=== PATIENT | female | born 1960 | race Two or more races ===

== ENCOUNTER 2024-07-10 02:15 | Inpatient (IN) | payer MEDICAID, OTHER ==
[~2024-07-10] VITALS: Ht 170.2 cm; Wt 113.4 kg
[2024-07-10 02:50] VITALS: PULSE 82; RESP 18; O2SAT 94
--- NOTE | 2024-07-10 04:38 | ED.PDOC ---
GI ASSESSMENT HPI Comments 62-year-old female came to emergency room due to generalized weakness. Patient has hypertension, diabetes, CVA. Has been having abdominal pain since yesterday, associated with bouts of nausea, vomiting and diarrhea. She has been feeling very weak and dehydrated. Blood pressure upon arrival was 207/94 mm Hg Chief Complaint: General Weakness Time Seen by MD: 04:38 Primary Care Provider: Unk Reviewed Notes: Nurses Notes Allergies: Coded Allergies: NO KNOWN ALLERGIES (Unverified , 07/10/24) Information Source: Patient Mode of Arrival: EMS Timing: Hours Duration: Intermittent Quality: Aching, Cramping Vomitus: Watery Stool: Watery Severity: Moderate Recent: None Recent Hx of: None Pain Location: Epigastric Modifying Factors: Nothing Associated sign and symptoms: Nausea, Vomiting, Diarrhea, Abdominal Pain, Faintness Past Medical History PAST MEDICAL HISTORY: CVA, Depression, HTN Surgical History: Denies all surgeries [employer] History: Denies all [employer] Hx Family History Family History: Reviewed,noncontributory to illness Social History Smoker: Non-Smoker Alcohol: Denies ETOH Use Drugs: Denies Drug Use Lives In: Home Constitutional: reports: fatigue, weakness; denies: chills, diaphoresis, fever, malaise, sweats, others EENTM: denies: blurred vision, double vision, ear bleeding, ear discharge, ear drainage, ear pain, ear ringing, eye pain, eye redness, hearing loss, mouth pain, mouth swelling, nasal discharge, nose bleeding, nose congestion, nose pain, photophobia, tearing, throat pain, throat swelling, voice changes, others Respiratory: denies: cough, hemoptysis, orthopnea, SOB at rest, shortness of breath, SOB with excertion, stridor, wheezing, others Cardiovascular: denies: chest pain, dizzy spells, diaphoresis, Dyspnea on exertion, edema, irregular heart beat, left arm pain, lightheadedness, palpitations, PND, syncope, others Gastrointestinal: reports: abdominal pain, diarrhea, nausea, vomiting; denies: abdomen distended, blood streaked bowels, constipated, dysphagia, difficulty swallowing, hematemesis, melena, poor appetite, poor fluid intake, rectal bleeding, rectal pain, others Genitourinary: denies: abnormal vagina bleeding, burning, dyspareunia, dysuria, flank pain, frequency, hematuria, incontinence, pain, , vagina discharge, urgency, others Neurological: denies: dizziness, fainting, headache, left sided numbness, left sided weakness, numbness, paresthesia, pre-existing deficit, right sided numbness, right sided weakness, seizure, speech problems, tingling, tremors, we akness, others Musculoskeletal: denies: back pain, gout, joint pain, joint swelling, muscle pain, muscle stiffness, neck pain, others Integumetry: denies: bruises, change in color, change in hair/nails, dryness, laceration, lesions, lumps, rash, wounds, others Allergic/Immunocompromised: denies: Difficulty Healing, Frequent Infections, Hives, Itching, others Hematologic/Lymphatic: denies: anemia, blood clots, easy bleeding, easy bruising, swollen glands, others Endocrine: denies: excessive hunger, excessive sweating, excessive thirst, excessive urination, flushing, intolerance to cold, intolerance to heat, unexplained weight gain, unexplained weight loss, others Psychiatric: denies: anxiety, bipolar disorder, depression, hopeless, panic disorder, schizophrenia, sleepless, suicidal, others Physical Exam General Appearance: No Apparent Distress, Normal HEENT: Normal ENT Inspection, Pharynx Normal, TMs Normal Neck: Full Range of Motion, Non-Tender, Normal, Normal Inspection Respiratory: Chest Non-Tender, Lungs Clear, No Accessory Muscle Use, No Respiratory Distress, Normal Breath Sounds Cardiovascular: No Edema, No JVD, No Murmur, No Gallop, Normal Peripheral Pulses, Regular Rate/Rhythm Breast Exam: Deferred Gastrointestinal: No Organomegaly, Non Tender, No Pulsatile Mass, Normal Bowel Sounds, Soft Genitalia: Deferred Pelvic: Deferred Rectal: Deferred Extremities: No calf tenderness, Normal capillary refill, Normal inspection, Normal range of motion, Non-tender, No pedal edema Musculoskeletal : Apperance: Normal Neurologic: Alert, supervisor cell efficiency II-XII nml as Tested, No Motor Deficits, Normal Affect, Normal Mood, No Sensory Deficits Cerebellar Function: Normal Reflexes: Normal Skin: Dry, Normal Color, Warm Lymphatic: No Adenopathy Was a procedure done? Was a procedure done?: No GI differential Dx Differential Diagnosis: Diverticular disease, Gastritis/PUD, Gastroenteritis, Pancreatitis, UTI, Urolithiasis, Dehydration, Electrolyte Imbalance, Food Po isoning X-Ray, Labs, Meds, VS Vital Signs Date Time Temp Pulse Resp B/P (MAP) Pulse Ox O2 Delivery O2 Flow Rate FiO2 07/10/24 02:18 83 07/10/24 02:18 100.0 88 24 207/94 (131) 95 Lab Test 07/10/24 05:30 07/10/24 05:12 07/10/24 04:45 07/10/24 03:42 Range/Units Influenza Type A Antigen Pending Influenza Type B Antigen Pending SARS-CoV-2 Antigen (Rapid) Pending White Blood Count Pending Red Blood Count Pending Hemoglobin Pending Hematocrit Pending Mean Corpuscular Volume Pending Mean Corpuscular Hemoglobin Pending Mean Corpuscular Hemoglobin Concent Pending Red Cell Distribution Width Pending Platelet Count Pending Mean Platelet Volume Pending Neutrophils (%) (Auto) Pending Lymphocytes (%) (Auto) Pending Monocytes (%) (Auto) Pending Basophils (%) (Auto) Pending Neutrophils # (Auto) Pending Lymphocytes # (Auto) Pending Monocytes # (Auto) Pending Sodium Level Pending Potassium Level Pending Chloride Level Pending Carbon Dioxide Level Pending Anion Gap Pending Blood Urea Nitrogen Pending Creatinine Pending Glomerular Filtration Rate Calc Pending BUN/Creatinine Ratio Pending Serum Glucose Pending Calcium Level Pending Total Bilirubin Pending Aspartate Amino Transferase (AST) Pending Alanine Aminotransferase (ALT) Pending Alkaline Phosphatase Pending Troponin I High Sensitivity Pending Total Protein Pending Albumin Pending Urine Color Light-brown Yellow Urine Clarity Turbid H Clear Urine pH 6.5 5.0-9.0 Urine Specific [place] 1.013 1.001-1.035 Urine Protein 1+ H Negative Urine Ketones Negative Negative Urine Blood 2+ H Negative /uL Urine Nitrite Negative Negative Urine Bilirubin Negative Negative Urine Urobilinogen Normal Negative mg/dL Urine Leukocyte Esterase 3+ Negative /uL Urine RBC 524 0 - 4 /hpf Urine WBC Clumps Present None Seen /hpf Urine Microscopic WBC 149 H 0-5 /HPF Urine Squamous Epithelial Cells Few <5 /hpf Urine Amorphous Crystals Few None Seen /hpf Urine Bacteria Many H None Seen /hpf Urine Glucose 2+ H Normal mg/dL POC Glucose 172 H 70-106 mg/dl Current Medications Medications (Trade) Dose Ordered Sig/Yao Route Start Time Stop Time Status Last Admin Sodium Chloride 1,000 ml @ 150 mls/hr [id number] ONCE IV 07/10/24 04:30 07/10/24 11:09 07/10/24 05:19 Acetaminophen (Ofirmev) 1,000 mg ONCE ONCE IV 07/10/24 04:30 07/10/24 04:31 DC 07/10/24 05:19 Diphenhydramine HCl (Benadryl Injection) 25 mg ONCE ONCE IV 07/10/24 04:30 07/10/24 04:31 DC 07/10/24 05:17 UA reveals urinary tract infection. Labs and swabs are pending. The patient will be signed out to Time of 1ST Reevaluation: 04:20 Reevaluation 1ST: Unchanged Time of 2ND Reevaluation: 05:55 Reevaluation 2ND: Improved Patient Education/Counseling: Diagnosis, Treatment Family Education/Counseling: No Family Present Departure 1 Departure Time of Disposition: 05:58 Impression: Primary Impression: UTI (urinary tract infection) Qualified Codes: N39.0 - Urinary tract infection, site not specified; R31.9 - Hematuria, unspecified Additional Impression: Viral syndrome Disposition: 30 STILL A PATIENT Condition: Guarded Discharged With: Self Critical Care Note Critical Care Time?: No Stability Stability form required: No Heart Score Heart Score: Heart Score Response (Comments) Value History N/A 0 EKG N/A 0 Age N/A 0 Risk Factors N/A 0 Troponin N/A 0 Total 0 I personally scribed for MADISON CUNNINGHAM MD ([email or web address]) on 07/10/24 at 04:38. Electronically submitted by Kenton Lim ([email or web address]). MADISON CUNNINGHAM MD Jul 10, 2024 04:38
[2024-07-10] MEDS: diphenhdrAMINE HCL 50 MG/1 ML VL IV ONE (05:17)
[2024-07-10] MEDS: ONDANSETRON HCL 4 MG/2 ML VIAL IV ONE ×2 (05:19→10:46)
[2024-07-10] MEDS: SODIUM CHLORIDE 0.9% 1,000 ML IV ONE (05:19)
[2024-07-10] MEDS: ACETAMINOPHEN IV 1000 MG/100ML (10MG/ML) IV ONE (05:19)
[2024-07-10 05:22] LABS: Urine Amorphous Crystal FEW /hpf (None Seen); Urine Bacteria MANY /hpf (None Seen); Urine Blood 2+ /uL (Negative); Urine Clarity Turbid (Clear); Urine Color Light-Brown (Yellow); Urine Protein, UAD 1+ (Negative); Urine Specific Gravity 1.013 (1.001-1.035); Urine Squamous Epithelial Cell FEW /hpf (<5); Urine Urobilinogen Normal (Negative); Urine WBC 149 /HPF (0-5); Urine WBC Clumps PRESENT /hpf (None Seen); Urine pH 6.5 (5.0-9.0)
--- NOTE | 2024-07-10 05:35 | DVH ---
EXAM: XR Chest, 1 View CLINICAL INDICATION: flu TECHNIQUE: Frontal view of the chest. COMPARISON: None FINDINGS: LUNGS AND PLEURAL SPACES: Pulmonary venous congestion. No consolidation. No pneumothorax. HEART: Unremarkable. No cardiomegaly. MEDIASTINUM: Unremarkable. Normal mediastinal contour. BONES/JOINTS: Unremarkable. No acute fracture. OTHER FINDINGS: . . . .. IMPRESSION: Pulmonary venous congestion.
[2024-07-10 05:43] LABS: Basophils # (auto) 0.1 10 ^3/uL (0-0.2); Basophils % (auto) 0.6 % (0.0-2.0); Eosinophils # (auto) 0 10 ^3/uL (0-0.8); Eosinophils % (auto) 0.1 % (0.0-7.0); Hematocrit 32.2 % (36.0-46.0); Hemoglobin 10.4 g/dL (12.2-16.2); Lymphocytes # (auto) 0.9 10 ^3/uL (0.4-5.4); Lymphocytes % (auto) 6.9 % (10.0-50.0); Mean Corpuscular Hemoglobin 28.9 pg (28.0-32.0); Mean Corpuscular Hgb Conc. 32.4 g/dL (32.0-36.0); Mean Corpuscular Volume 89.3 fL (80.0-100.0); Monocytes # (auto) 0.7 10 ^3/uL (0-1.3); Neutrophils # (auto) 11.4 10 ^3/uL (1.6-8.6); Neutrophils % (auto) 87.4 % (37.0-80.0); Nucleated Red Blood Cells % 0.1 %; Platelet Count (auto) 243 10^3/uL (140-450); Red Blood Cells 3.61 10^6/uL (4.0-5.20); Red Cell Distribution Width 15.6 % (11.8-14.3); White Blood Cell 13.1 10^3/uL (4.4-10.8)
[2024-07-10 06:23] LABS: Rapid Influenza A Negative (Negative); Rapid Influenza B Negative (Negative)
[2024-07-10 06:24] LABS: COVID19 ANTIGEN SOFIA FIA NEGATIVE (NEGATIVE)
[2024-07-10 06:33] LABS: Alanine Aminotransferase 14 U/L (7-40); Albumin 3.7 g/dL (3.2-4.8); Anion Gap 9 (5-15); Aspartate Aminotransferase 16 U/L (13-40); BUN/Creatinine Ratio 12.5 (10.0-20.0); Calcium 9.8 mg/dL (8.7-10.4); Carbon Dioxide 22 mmol/L (20-31); Potassium 4.1 mmol/L (3.5-5.1); Sodium 143 mmol/L (136-145)
[2024-07-10 06:34] LABS: Bilirubin, Total 0.6 mg/dL (0.2-1.0); Total Protein 6.2 g/dL (5.7-8.2)
[2024-07-10 06:35] LABS: Alkaline Phosphatase 136 U/L (46-116); Blood Urea Nitrogen 29 mg/dL (9-23); Chloride 112 mmol/L (98-107); Glucose 196 mg/dL (74-106)
[2024-07-10] MEDS: MORPHINE SULFATE INJ 2 MG/ml SYRG IV ONE (10:47)
[2024-07-10] MEDS: PIPERACILLIN-TAZOB 3.375GM 100 ML IV ONE (10:48)
[2024-07-10] MEDS ORDERED: DEXTROSE (50%) 50ML SYRG IV PRN (11:00)
[2024-07-10] MEDS ORDERED: ONDANSETRON HCL 4 MG/2 ML VIAL IV PRN (11:00)
[2024-07-10] MEDS ORDERED: DOCUSATE SOD 100 MG CAP PO PRN (11:00)
[2024-07-10] MEDS ORDERED: ACETAMINOPHEN 325 MG TAB PO PRN (11:00)
--- NOTE | 2024-07-10 11:14 | DVHHP2 ---
History of Present Illness Reason for Visit: Abdominal pain History of Present Illness Vee Melo is a 63-year-old female with past medical history of diabetes, hypertension, and recent CVA, who came into the hospital for abdominal pain. Patient states that she has been constipated for 3 days, but was able to have a large BM last night. She also states that that she has been week for the last few days. Patient is alert and oriented x 3. However, she has periods of confusion, and is a poor historian. She can not tell me if she has had previous surgeries, if she went to the hospital when she had her stroke, or what medications she takes. Cardiovascular: HTN Endocrine: Diabetes Smoke: No ALCOHOL: none Drugs: None Lives: with Family Domestic Violence: Neg Review of Systems Constitutional: No: Fever, Chills, Sweats, Weakness, Malaise, Other Eyes: No: Pain, Vision change, Conjunctivae inflammation, Eyelid inflammation, Other, Redness ENT: No: Ear pain, Ear discharge, Nose pain, Nose discharge, Nose congestion, Mouth pain, Mouth swelling, Throat pain, Throat swelling, Other Respiratory: No: Cough, Dry, Shortness of breath, SOB with excertion, Wheezing, Hemoptysis, Pleuritic Pain, Sputum, Wheezing, Other Cardiovascular: No: Chest Pain, Palpitations, Orthopnea, Paroxysmal Noc. Dyspnea, Edema, Lt Headedness, Other Gastrointestinal: Nausea, Vomiting, Abdominal Pain, Constipation; No: Diarrhea, Melena, Hematochezia, Other Genitourinary: No Dysuria, No Frequency, No Incontinence, No Hematuria, No Retention, No Other Musculoskeletal: No: other, neck pain, shoulder pain, arm pain, back pain, hand pain, leg pain, foot pain Skin: No: Rash, Lesions, Jaundice, Bruising, Other Neurological: Weakness; No: Numbness, Incoordination, Change in speech, Confusion, Seizures, Other Allergies: Coded Allergies: NO KNOWN ALLERGIES (Unverified , 07/10/24) Medications Current Medications Medications Dose Ordered Sig/Yao Route Start Time Stop Time Status Last Admin Dose Admin Sodium Chloride 10 ml Q8HR IV 07/10/24 14:00 UNV Acetaminophen/ Hydrocodone Bitart 1 tab Q4HP PRN PO 07/10/24 11:00 UNV Ondansetron HCl 4 mg Q4HP PRN IV 07/10/24 11:00 UNV Docusate Sodium 100 mg BIDPRN PRN PO 07/10/24 11:00 UNV Acetaminophen 650 mg Q6HP PRN PO 07/10/24 11:00 UNV Diagnostic Test (Pha) 1 strip ACHS 07/10/24 11:30 UNV Insulin Human Regular HS SC 07/10/24 22:00 UNV Insulin Human Regular AC SC 07/10/24 11:30 UNV Dextrose 50 ml UD PRN IV 07/10/24 11:00 UNV Exam Vital Signs Vital Signs Date Time Temp Pulse Resp B/P (MAP) Pulse Ox O2 Delivery O2 Flow Rate FiO2 07/10/24 10:47 73 14 178/68 07/10/24 06:00 98 07/10/24 02:50 Room Air* 0 21 07/10/24 02:50 98.9 98.9 General Appearance: Alert, Oriented X3 HEENT: Atraumatic, PERRLA Respiratory: Clear to auscultation, Normal air movement Cardiovascular: Regular rate, Normal S1, Normal S2 Abdominal: Normal bowel sounds, Soft, Other (tenderness to RUQ & LUQ) Extremities: No clubbing, No cyanosis, No edema, Normal pulses Skin: No rashes, No significant lesion Neuro: Normal speech, Other (A&O x 3, has periods of confusion, poor historian) Psych/Mental Status: Mental status NL, Mood NL Labs/Xrays Labs Test 07/10/24 08:28 07/10/24 05:30 07/10/24 05:12 07/10/24 04:45 Range/Units Troponin I High Sensitivity 21 </=34 ng/L Influenza Type A Antigen Negative Negative Influenza Type B Antigen Negative Negative SARS-CoV-2 Antigen (Rapid) Negative NEGATIVE White Blood Count 13.1 H 4.4-10.8 10^3/uL Red Blood Count 3.61 L 4.0-5.20 10^6/uL Hemoglobin 10.4 L 12.2-16.2 g/dL Hematocrit 32.2 L 36.0-46.0 % Mean Corpuscular Volume 89.3 80.0-100.0 fL Mean Corpuscular Hemoglobin 28.9 28.0-32.0 pg Mean Corpuscular Hemoglobin Concent 32.4 32.0-36.0 g/dL Red Cell Distribution Width 15.6 H 11.8-14.3 % Platelet Count 243 140-450 10^3/uL Mean Platelet Volume 7.7 6.9-10.8 fL Neutrophils (%) (Auto) 87.4 H 37.0-80.0 % Lymphocytes (%) (Auto) 6.9 L 10.0-50.0 % Monocytes (%) (Auto) 5.0 0.0-12.0 % Eosinophils (%) (Auto) 0.1 0.0-7.0 % Basophils (%) (Auto) 0.6 0.0-2.0 % Neutrophils # (Auto) 11.4 H 1.6-8.6 10 ^3/uL Lymphocytes # (Auto) 0.9 0.4-5.4 10 ^3/uL Monocytes # (Auto) 0.7 0-1.3 10 ^3/uL Eosinophils # (Auto) 0 0-0.8 10 ^3/uL Basophils # (Auto) 0.1 0-0.2 10 ^3/uL Nucleated Red Blood Cells 0.1 % Sodium Level 143 136-145 mmol/L Potassium Level 4.1 3.5-5.1 mmol/L Chloride Level 112 H 98-107 mmol/L Carbon Dioxide Level 22 20-31 mmol/L Anion Gap 9 5-15 Blood Urea Nitrogen 29 H 9-23 mg/dL Creatinine 2.32 H 0.550-1.02 mg/dL Glomerular Filtration Rate Calc 23 >90 mL/min BUN/Creatinine Ratio 12.5 10.0-20.0 Serum Glucose 196 H 74-106 mg/dL Calcium Level 9.8 8.7-10.4 mg/dL Total Bilirubin 0.6 0.2-1.0 mg/dL Aspartate Amino Transferase (AST) 16 13-40 U/L Alanine Aminotransferase (ALT) 14 7-40 U/L Alkaline Phosphatase 136 H 46-116 U/L Total Protein 6.2 5.7-8.2 g/dL Albumin 3.7 3.2-4.8 g/dL Urine Color Light-brown Yellow Urine Clarity Turbid H Clear Urine pH 6.5 5.0-9.0 Urine Specific [place] 1.013 1.001-1.035 Urine Protein 1+ H Negative Urine Ketones Negative Negative Urine Blood 2+ H Negative /uL Urine Nitrite Negative Negative Urine Bilirubin Negative Negative Urine Urobilinogen Normal Negative mg/dL Urine Leukocyte Esterase 3+ Negative /uL Urine RBC 524 0 - 4 /hpf Urine WBC Clumps Present None Seen /hpf Urine Microscopic WBC 149 H 0-5 /HPF Urine Squamous Epithelial Cells Few <5 /hpf Urine Amorphous Crystals Few None Seen /hpf Urine Bacteria Many H None Seen /hpf Urine Glucose 2+ H Normal mg/dL Test 07/10/24 03:42 Range/Units POC Glucose 172 H 70-106 mg/dl EXAM: XR Chest, 1 View FINDINGS: LUNGS AND PLEURAL SPACES: Pulmonary venous congestion. No consolidation. No pneumothorax. HEART: Unremarkable. No cardiomegaly. MEDIASTINUM: Unremarkable. Normal mediastinal contour. BONES/JOINTS: Unremarkable. No acute fracture. OTHER FINDINGS: . . . .. IMPRESSION: Pulmonary venous congestion. Assessment/Plan Assessment/Plan Assessment: UTI (urinary tract infection), Generalized weakness, Hyperglycemia, Leukocytosis, Acute on chronic kidney disease, Hypertension, H/O recent stroke with left sided weakness, Plan: Admit to Med-Surg, IV hydration, IV antibiotics, Consider GI consult if abdominal pain does not improve, Consider CT Ab/Pel if abdominal pain does not improve, Accu checks Q AC&HS with sliding scale, A1c, Physical therapy evaluation and treatment, Lactic acid level, Plan discussed with: Patient My Orders Orders - AROLDO CHAUDHRY [employer] Procedure Category Date Status Time Admit ADMIT 07/10/24 Transmitted 10:52 Code Status CODE 07/10/24 Transmitted 10:52 Sodium Chloride Lock PHA 07/10/24 Logged (Saline Lock Ns) 14:00 Hydrocodone-Acet PHA 07/10/24 Logged 5/325mg Tab (Lockhart 11:00 Ondansetron Hcl PHA 07/10/24 Logged (Zofran) 11:00 Docusate Sodium PHA 07/10/24 Logged Capsule (Colace 11:00 Complete Blood Count LAB 07/11/24 Verified 04:00 Comprehensive LAB 07/11/24 Verified Metabolic Panel 04:00 Cardiac DIET 07/10/24 Transmitted Diet-2gna,Lofat,Lochol Lunch Pt Request For Service PT 07/10/24 Logged 10:52 Condition: Serious ANGELIKA 07/10/24 In Process 10:52 Acetaminophen Tablet PHA 07/10/24 Logged (Tylenol Tablet) 11:00 Glucose Blood PHA 07/10/24 Logged (Accu-Chek Comfort 11:30 Insulin R (Human) PHA 07/10/24 Logged (Insulin R) 22:00 Insulin R (Human) PHA 07/10/24 Logged (Insulin R) 11:30 Dextrose 50% Syringe PHA 07/10/24 Logged 11:00 Date of Service: Jul 10, 2024 Billing Provider: AROLDO CHAUDHRY Common Visit Codes: [id number] INP/OBS CARE (MOD) AROLDO CHAUDHRY Jul 10, 2024 11:14
--- NOTE | 2024-07-10 11:43 | DVH ---
INDICATION: Abdominal pain TECHNIQUE: Multiple views of the abdomen were obtained. COMPARISON: None FINDINGS: The bowel loops are nondilated. There is no evidence of free air. The lung bases are clear. The visualized osseous structures appear intact. IMPRESSION: Large stool burden
[2024-07-10] MEDS: ACCU-CHEK COMFORT CURVE STRIP VI SCH (12:32)
[2024-07-10] MEDS: cefTRIAXone 1GM/50ML D5W 50 ML IV ONE (12:32)
[2024-07-10] MEDS: InsuLIN REG 1unit/0.01ml Soln (100units/ml) SC SCH ×2 (12:33→21:57)
--- NOTE | 2024-07-10 13:24 | ECG ---
[facility] Test Date: 2024-07-10 Test Time: 02:18:07 Pat Name: ANTIONETTE VALENZUELA Department: ED Room: [address] [place] [address] A Gender: F Physician Assistant Primary Care: RITESH : 1960 Requested By: EMERGENCY EMERGENCY Order Number: [id number] Reading MD: Eladio Mckinney Measurements Intervals [place] Rate: 83 P: 78 IL: 257 QRS: -33 QRSD: 114 T: 119 QT: 416 QTc: 489 Interpretive Statements Sinus rhythm Prolonged [place] interval LVH with IVCD and secondary repol abnrm Borderline prolonged QT interval Electronically Signed On 07-13-2024 21:45:33 PST by Eladio Mckinney Please click the below link to view image of tracing.
[2024-07-10] MEDS ORDERED: cloNIDine HCL 0.1 MG TAB ONE (15:14)
[2024-07-10] MEDS: SODIUM CHLOR 0.9% PF (SALINE LOCK) 10ML VIAL/SYR IV SCH (15:20)
[2024-07-10] MEDS: cloNIDine HCL 0.1 MG TAB PO ONE (15:31)
[2024-07-10] MEDS: amLODIPine BESYLATE 5 MG TAB PO ONE (15:41)
[2024-07-10] MEDS ORDERED: FURO40TA4 PO (17:17)
[2024-07-10] MEDS ORDERED: CLON0.1T PO (17:17)
[2024-07-10] MEDS ORDERED: FERR325T20 PO (17:17)
[2024-07-10] MEDS ORDERED: GABA-1250 PO (17:17)
[2024-07-10] MEDS ORDERED: CARV25TA55 PO (17:17)
[2024-07-10] MEDS ORDERED: ATOR-47 PO (17:17)
[2024-07-10] MEDS ORDERED: AMLO1TAB23 PO (17:17)
[2024-07-10] MEDS ORDERED: APIX5TAB PO (17:17)
[2024-07-10] MEDS ORDERED: ASPI-325 PO (17:17)
[2024-07-10] MEDS: FERROUS SULFATE 325mg EC TAB PO SCH (18:19)
[2024-07-10 19:30] VITALS: PULSE 68; RESP 17; O2SAT 98
[2024-07-10] MEDS: HYDROcodone-ACET 5/325MG TAB PO PRN (19:55)
[2024-07-10] MEDS: APIXABAN 5 MG TAB PO SCH (21:54)
[2024-07-10] MEDS: FUROSEMIDE 40 MG TAB PO SCH (21:55)
[2024-07-10] MEDS: cloNIDine HCL 0.1 MG TAB PO SCH ×2 (21:55→22:00)
[2024-07-10] MEDS: GABAPENTIN 300 MG CAP PO SCH (21:56)
[2024-07-10] MEDS: ATORVASTATIN 20 MG TAB PO SCH (21:56)
[2024-07-10] MEDS ORDERED: PATIENTS OWN MEDICATION (Ferrous Sulfate (Ferosul) 1 TAB) PO SCH (22:00)
[2024-07-10] MEDS ORDERED: PATIENTS OWN MEDICATION (Carvedilol 1 TAB) PO SCH (22:00)
[2024-07-10] MEDS: CARVEDILOL 12.5 MG TAB PO SCH (22:00)
[2024-07-10] MEDS ORDERED: PATIENTS OWN MEDICATION (Atorvastatin Calcium 1 TAB) PO SCH (22:00)
[2024-07-11 07:36] LABS: Basophils # (auto) 0.1 10 ^3/uL (0-0.2); Eosinophils # (auto) 0.2 10 ^3/uL (0-0.8); Eosinophils % (auto) 3.5 % (0.0-7.0); Hematocrit 36.8 % (36.0-46.0); Hemoglobin 11.7 g/dL (12.2-16.2); Lymphocytes # (auto) 1.5 10 ^3/uL (0.4-5.4); Lymphocytes % (auto) 23.5 % (10.0-50.0); Mean Corpuscular Hemoglobin 28.8 pg (28.0-32.0); Mean Corpuscular Hgb Conc. 31.7 g/dL (32.0-36.0); Mean Corpuscular Volume 90.6 fL (80.0-100.0); Monocytes # (auto) 0.6 10 ^3/uL (0-1.3); Monocytes % (auto) 8.9 % (0.0-12.0); Neutrophils # (auto) 4.1 10 ^3/uL (1.6-8.6); Neutrophils % (auto) 63.1 % (37.0-80.0); Nucleated Red Blood Cells % 0.1 %; Platelet Count (auto) 243 10^3/uL (140-450); Red Blood Cells 4.07 10^6/uL (4.0-5.20); Red Cell Distribution Width 16.4 % (11.8-14.3); White Blood Cell 6.5 10^3/uL (4.4-10.8)
[2024-07-11 07:57] LABS: Alanine Aminotransferase 12 U/L (7-40); Anion Gap 8 (5-15); BUN/Creatinine Ratio 10.8 (10.0-20.0); Calcium 9.9 mg/dL (8.7-10.4); Carbon Dioxide 25 mmol/L (20-31); Potassium 4.2 mmol/L (3.5-5.1); Sodium 143 mmol/L (136-145)
[2024-07-11 07:58] LABS: Aspartate Aminotransferase 15 U/L (13-40)
[2024-07-11 07:59] LABS: Albumin 3.7 g/dL (3.2-4.8)
[2024-07-11 08:00] LABS: Alkaline Phosphatase 122 U/L (46-116); Bilirubin, Total 0.4 mg/dL (0.2-1.0); Blood Urea Nitrogen 28 mg/dL (9-23); Chloride 110 mmol/L (98-107); Glucose 132 mg/dL (74-106); Total Protein 6.3 g/dL (5.7-8.2)
[2024-07-11 08:10] VITALS: TEMP 97.7
[2024-07-11 08:15] VITALS: PULSE 62; RESP 18; O2SAT 98
[2024-07-11 10:00] VITALS: BP 188/86; PULSE 66; RESP 18; O2SAT 98
[2024-07-11] MEDS ORDERED: PATIENTS OWN MEDICATION (Amlodipine Besylate 1 TAB) PO SCH (10:00)
[2024-07-11] MEDS: cefTRIAXone 1GM/50ML D5W 50 ML IV SCH (10:32)
[2024-07-11] MEDS: ASPirin 81 mg TAB PO SCH (10:34)
[2024-07-11] MEDS: ASPirin-EC 81 mg tab PO SCH (10:35)
[2024-07-11] MEDS: amLODIPine BESYLATE 5 MG TAB PO SCH (10:35)
--- NOTE | 2024-07-11 10:57 | DVHPN2 ---
Eyes: No Pain, No Vision change, No Conjunctivae inflammation, No Eyelid inflammation, No Other, No Redness ENT: No Ear pain, No Ear discharge, No Nose pain, No Nose discharge, No Nose congestion, No Mouth pain, No Mouth swelling, No Throat pain, No Throat swelling, No Other Cardiovascular: No Chest Pain, No Palpitations, No Orthopnea, No Paroxysmal Noc. Dyspnea, No Edema, No Lt Headedness, No Other Respiratory: No Cough, No Dry, No Shortness of breath, No SOB with excertion, No Wheezing, No Hemoptysis, No Pleuritic Pain, No Sputum, No Other Gastrointestinal: Nausea, Vomiting, Abdominal Pain; No Diarrhea; Constipation; No Melena, No Hematochezia, No Other Genitourinary: No Dysuria, No Frequency, No Incontinence, No Hematuria, No Retention, No Other Musculoskeletal: No other, No neck pain, No shoulder pain, No arm pain, No back pain, No hand pain, No leg pain, No foot pain Skin: No Rash, No Lesions, No Jaundice, No Bruising, No Other Objective Vitals Vital Signs Date Time Temp Pulse Resp B/P (MAP) Pulse Ox O2 Delivery O2 Flow Rate FiO2 07/11/24 10:35 188/86 07/11/24 10:34 66 07/11/24 08:15 18 98 Nasal Cannula* 2 28 07/11/24 08:10 97.7 97.7 Intake/Output Intake and Output 07/11/24 07:00 Intake Total 900 ml Output Total 650 ml Balance 250 ml Intake IV Total 900 ml Output Urine Total 650 ml Medications Current Medications Medications Dose Ordered Sig/Yao Route Start Time Stop Time Status Last Admin Dose Admin Sodium Chloride 10 ml Q8HR IV 07/10/24 14:00 07/11/24 06:12 10 ML Acetaminophen/ Hydrocodone Bitart 1 tab Q4HP PRN PO 07/10/24 11:00 07/11/24 10:34 1 TAB Ondansetron HCl 4 mg Q4HP PRN IV 07/10/24 11:00 Docusate Sodium 100 mg BIDPRN PRN PO 07/10/24 11:00 Acetaminophen 650 mg Q6HP PRN PO 07/10/24 11:00 Diagnostic Test (Pha) 1 strip ACHS 07/10/24 11:30 07/11/24 07:20 1 STRIP Insulin Human Regular HS SC 07/10/24 22:00 Insulin Human Regular AC SC 07/10/24 11:30 07/10/24 17:17 2 UNITS Dextrose 50 ml UD PRN IV 07/10/24 11:00 Ceftriaxone Sodium 50 ml @ 100 mls/hr DAILY@09 IV 07/11/24 09:00 07/11/24 10:32 100 MLS/HR Carvedilol 25 mg BID PO 07/10/24 22:00 07/11/24 10:34 25 MG Clonidine HCl 0.2 mg TID PO 07/10/24 22:00 07/11/24 06:19 0.2 MG Amlodipine Besylate 10 mg DAILY PO 07/11/24 10:00 07/11/24 10:35 10 MG Atorvastatin Calcium 80 mg HS PO 07/10/24 22:00 07/10/24 21:56 80 MG Aspirin 81 mg DAILY PO 07/11/24 10:00 07/11/24 10:34 81 MG Ferrous Sulfate 325 mg BIDWM PO 07/10/24 18:00 07/11/24 08:29 325 MG Apixaban 5 mg BID PO 07/10/24 22:00 07/11/24 10:33 5 MG Aspirin 81 mg DAILY PO 07/11/24 10:00 Furosemide 40 mg BID PO 07/10/24 22:00 07/11/24 10:35 40 MG Gabapentin 300 mg TID PO 07/10/24 22:00 07/11/24 06:19 300 MG Laboratory Results Laboratory Tests 07/11/24 07:04 Chemistry Test 07/11/24 07:04 Albumin 3.7 g/dL (3.2-4.8) Calcium Level 9.9 mg/dL (8.7-10.4) Total Protein 6.3 g/dL (5.7-8.2) LFT Test 07/11/24 07:04 Alanine Aminotransferase (ALT) 12 U/L (7-40) Alkaline Phosphatase 122 U/L (46-116) H Aspartate Amino Transferase (AST) 15 U/L (13-40) Total Bilirubin 0.4 mg/dL (0.2-1.0) HgA1c, TSH Test 07/11/24 07:04 Hemoglobin A1c 6.1 % A1C (<5.7) H Urinalysis Test 07/10/24 04:45 Urine Color Light-brown (Yellow) Urine Clarity Turbid (Clear) H Urine pH 6.5 (5.0-9.0) Urine Specific [place] 1.013 (1.001-1.035) Urine Protein 1+ (Negative) H Urine Ketones Negative (Negative) Urine Blood 2+ /uL (Negative) H Urine Nitrite Negative (Negative) Urine Bilirubin Negative (Negative) Urine Urobilinogen Normal mg/dL (Negative) Urine Leukocyte Esterase 3+ /uL (Negative) Urine RBC 524 /hpf (0 - 4) Urine WBC Clumps Present /hpf (None Seen) Urine Microscopic WBC 149 /HPF (0-5) H Urine Squamous Epithelial Cells Few /hpf (<5) Urine Amorphous Crystals Few /hpf (None Seen) Urine Bacteria Many /hpf (None Seen) H Urine Glucose 2+ mg/dL (Normal) H Microbiology Microbiology Date/Time Source Procedure Growth Status 07/10/24 04:45 Voided Urine Urine Culture - Preliminary Resulted DAISHA ASHER MD Jul 11, 2024 10:57
--- NOTE | 2024-07-11 12:02 | DVHDS2 ---
Discharge Summary Date of Admission Jul 10, 2024 at 10:52 Date of Discharge: Jul 11, 2024 Admitting Diagnosis UTI (urinary tract infection), Generalized weakness, Hyperglycemia, Leukocytosis, Acute on chronic kidney disease, Hypertension, H/O recent stroke with left sided weakness, Labs/Diagnostic Data: Laboratory Results Test 07/11/24 11:37 07/11/24 07:04 07/10/24 12:10 07/10/24 08:28 POC Glucose 129 mg/dl (70-106) White Blood Count 6.5 10^3/uL (4.4-10.8) Red Blood Count 4.07 10^6/uL (4.0-5.20) Hemoglobin 11.7 g/dL (12.2-16.2) Hematocrit 36.8 % (36.0-46.0) Mean Corpuscular Volume 90.6 fL (80.0-100.0) Mean Corpuscular Hemoglobin 28.8 pg (28.0-32.0) Mean Corpuscular Hemoglobin Concent 31.7 g/dL (32.0-36.0) Red Cell Distribution Width 16.4 % (11.8-14.3) Platelet Count 243 10^3/uL (140-450) Mean Platelet Volume 7.2 fL (6.9-10.8) Neutrophils (%) (Auto) 63.1 % (37.0-80.0) Lymphocytes (%) (Auto) 23.5 % (10.0-50.0) Monocytes (%) (Auto) 8.9 % (0.0-12.0) Eosinophils (%) (Auto) 3.5 % (0.0-7.0) Basophils (%) (Auto) 1.0 % (0.0-2.0) Neutrophils # (Auto) 4.1 10 ^3/uL (1.6-8.6) Lymphocytes # (Auto) 1.5 10 ^3/uL (0.4-5.4) Monocytes # (Auto) 0.6 10 ^3/uL (0-1.3) Eosinophils # (Auto) 0.2 10 ^3/uL (0-0.8) Basophils # (Auto) 0.1 10 ^3/uL (0-0.2) Nucleated Red Blood Cells 0.1 % Sodium Level 143 mmol/L (136-145) Potassium Level 4.2 mmol/L (3.5-5.1) Chloride Level 110 mmol/L (98-107) Carbon Dioxide Level 25 mmol/L (20-31) Anion Gap 8 (5-15) Blood Urea Nitrogen 28 mg/dL (9-23) Creatinine 2.59 mg/dL (0.550-1.02) Glomerular Filtration Rate Calc 20 mL/min (>90) BUN/Creatinine Ratio 10.8 (10.0-20.0) Serum Glucose 132 mg/dL (74-106) Hemoglobin A1c 6.1 % A1C (<5.7) Calcium Level 9.9 mg/dL (8.7-10.4) Total Bilirubin 0.4 mg/dL (0.2-1.0) Aspartate Amino Transferase (AST) 15 U/L (13-40) Alanine Aminotransferase (ALT) 12 U/L (7-40) Alkaline Phosphatase 122 U/L (46-116) Total Protein 6.3 g/dL (5.7-8.2) Albumin 3.7 g/dL (3.2-4.8) Lactic Acid Level 0.9 mmol/L (0.4-2.0) Troponin I High Sensitivity 21 ng/L (</=34) Test 07/10/24 05:30 07/10/24 04:45 Influenza Type A Antigen Negative (Negative) Influenza Type B Antigen Negative (Negative) SARS-CoV-2 Antigen (Rapid) Negative (NEGATIVE) Urine Color Light-brown (Yellow) Urine Clarity Turbid (Clear) Urine pH 6.5 (5.0-9.0) Urine Specific [place] 1.013 (1.001-1.035) Urine Protein 1+ (Negative) Urine Ketones Negative (Negative) Urine Blood 2+ /uL (Negative) Urine Nitrite Negative (Negative) Urine Bilirubin Negative (Negative) Urine Urobilinogen Normal mg/dL (Negative) Urine Leukocyte Esterase 3+ /uL (Negative) Urine RBC 524 /hpf (0 - 4) Urine WBC Clumps Present /hpf (None Seen) Urine Microscopic WBC 149 /HPF (0-5) Urine Squamous Epithelial Cells Few /hpf (<5) Urine Amorphous Crystals Few /hpf (None Seen) Urine Bacteria Many /hpf (None Seen) Urine Glucose 2+ mg/dL (Normal) Other Laboratory Tests 07/11/24 07:04 Brief Hx & Hospital Course: This is a 63 years old female with past medical history of diabetes, hypertension, recent CVA right-sided weakness, constipation came into emergency department because of abdominal pain. the patient find to have urinary tract infection and was put on IV antibiotic Rocephin 1 g IV q.day. we are waiting for culture and continuing to treat the patient however she grew inpatient and decided to against medical advice. The patient verbally understands if leaving early and without treatment appropriately her UTI can get worse, is can cause sepsis or even however the patient is still decided to leave against medical advice. Physical exam: HEENT: Normocephalic atraumatic pupils equal react to light and accommodation. Extraocular muscles intact, conjunctiva pink, oropharynx moist, no thrush, no exudate. Lymphatic: No lymphadenopathy Cardiovascular exam: S1, S2 was heard. No murmurs, rubs, gallops Lung: Clear on auscultation bilaterally, no wheeze, rale, rhonchi. GI: Abdominal soft, nondistended, nontenderness, positive bowel sounds. Extremity: No crepitus, cyanosis, edema. Pedal pulses present bilateral. Full range of motion. Skin: Normal turgor, no rash. Psych: Alert, oriented x3. Neurology: No focal deficits, cranial nerve II to XII grossly intact. This medical document was created using an electronic medical record system with [id number] direct computerized dictation system. Although this document has been carefully reviewed, there may still be some phonetic and typographical errors. These areas are purely typographical due to imperfections of the software programs, and do not reflect any compromise in the patient's medical care. Condition at Discharge: Guarded Final Diagnosis/Problems List UTI (urinary tract infection), Generalized weakness, Hyperglycemia, Leukocytosis, Acute on chronic kidney disease, Hypertension, H/O recent stroke with left sided weakness, Discharge Disposition: AMA Discharge Statement: "Patient was advised to return to the ER or call 911 if any headaches, dizziness, shortness of breath, chest pain, abdominal pain, bleeding, fevers, or worsening of medical condition. Patient was counseled about treatment plan, medications, possible side effects, patientverbalized understanding. All questions were answered to the best of my ability. This discharge took greater then 30 minutes in planning, reviewing documentation, counseling the patient, and discussing with other team members." ASSESSMENT ASSESSMENT Assessment Date of Service: Jul 11, 2024 Billing Provider: DAISHA ASHER MD Common Visit Codes: 90263-BES/OBS DISCH DAY >30min DAISHA ASHER MD Jul 11, 2024 12:02
== END 2024-07-11 11:25 | disposition left against medical advice (07) | DRG 463 ==
LOC: ER 02:15 → EDBD 02:15 → OVERFLOW 10:52
PROVIDERS: ADMIT Internal Medicine; ATTEND Internal Medicine
DX: N30.01 Acute cystitis with hematuria (principal); E11.22 Type 2 diabetes mellitus with diabetic chronic kidney disease; I69.354 Hemiplegia and hemiparesis following cerebral infarction affecting left non-dominant side; I16.0 Hypertensive urgency; Z53.29 Procedure and treatment not carried out because of patient's decision for other reasons; E11.65 Type 2 diabetes mellitus with hyperglycemia; N18.9 Chronic kidney disease, unspecified; B34.9 Viral infection, unspecified; I12.9 Hypertensive chronic kidney disease with stage 1 through stage 4 chronic kidney disease, or unspecified chronic kidney disease; F32.A Depression, unspecified; Z79.899 Other long term (current) drug therapy; Z79.4 Long term (current) use of insulin
CPT/HCPCS: 36415; 71045; 74018; 80053; 81001; 82962; 83036; 83605; 84484; 85025; 87086; 87426; 87804; 93005; 96365; 96375; G0378; J0131; J1815; J2405; J2543